=== PATIENT | male | born 1965 | race Caucasian/White ===

== ENCOUNTER 2021-01-10 15:49 | Emergency (ER) | payer OTHER ==
[2021-03-06] MEDS ORDERED: BUPROPION XL150 MG PO (15:57)
[2021-03-06] MEDS ORDERED: ATORVASTATIN CA40 MG PO (15:57)
[2021-03-06] MEDS ORDERED: DESYREL50 MG PO (15:57)
[2021-03-06] MEDS ORDERED: MELOXICAM15 MG PO (15:58)
[2021-03-06] MEDS ORDERED: LOSARTAN POTASS50 MG PO (15:58)
[2021-03-11] MEDS ORDERED: PERCOCET 5-3251 EACH PO (07:01)
[2021-03-11] MEDS ORDERED: ASPIRIN EC81 MG PO (10:23)
== END 2021-01-10 17:45 | disposition home or self-care (01) ==
LOC: FER 15:49
DX: S83.91XA Sprain of unspecified site of right knee, initial encounter (principal); I10 Essential (primary) hypertension; Z87.828 Personal history of other (healed) physical injury and trauma; X50.1XXA Overexertion from prolonged static or awkward postures, initial encounter
CPT/HCPCS: 73564

== ENCOUNTER → 2021-03-11 | Day surgery (SDC) | payer OTHER ==
[~2021-03-11] VITALS: Ht 167.6 cm; Wt 63.5 kg
[~2021-03-11] MED LIST: ASPIRIN EC81 MG PO; ATORVASTATIN CA40 MG PO; BUPROPION XL150 MG PO; DESYREL50 MG PO; LOSARTAN POTASS50 MG PO; MELOXICAM15 MG PO; PERCOCET 5-3251 EACH PO
[2021-03-11 11:08] LABS: HCT 41.5 % (42.0-52.0); HGB 15.1 g/dl (13.2-18.0); MCH 34.2 pg (25.0-31.0); MCHC 36.4 g/dL (32.0-36.0); MCV 94.1 fL (78.0-100.0); MPV 9.3 fL (6.0-9.5); RBC 4.41 M/uL (4.70-6.00); RDW 12.6 % (11.5-14.0); WBC 5.4 K/uL (4.0-10.5)
[2021-03-11 11:42] LABS: BILIRUBIN - TOTAL 1.6 mg/dL (0.2-1.0); CREATININE 1.1 mg/dL (0.67-1.17); GLOBULIN (CALCULATION) 2.9 g/dL; POTASSIUM 3.7 mmol/L (3.5-5.1); TOTAL PROTEIN 6.9 g/dL (6.4-8.2)
== END | disposition home or self-care (01) ==
LOC: FAS 10:08
PROVIDERS: Orthopaedic Surgery
DX: S83.211A Bucket-handle tear of medial meniscus, current injury, right knee, initial encounter (principal); M17.11 Unilateral primary osteoarthritis, right knee; M25.861 Other specified joint disorders, right knee; I10 Essential (primary) hypertension; E78.00 Pure hypercholesterolemia, unspecified; F41.9 Anxiety disorder, unspecified; F17.210 Nicotine dependence, cigarettes, uncomplicated; Z79.82 Long term (current) use of aspirin; Z79.891 Long term (current) use of opiate analgesic; Z79.899 Other long term (current) drug therapy; X58.XXXA Exposure to other specified factors, initial encounter
CPT/HCPCS: 36415; 80053; J1100; J1885; J2250; J2405; J2704; J3010; J7120